=== PATIENT | female | born 2000 | race Caucasian/White ===

== ENCOUNTER 2022-11-18 10:31 | Emergency (ER) | payer OTHER, SELFPAY ==
[2022-11-18 10:41] VITALS: BP 119/76; PULSE 85; TEMP 36.5; O2SAT 99; BMI 20.8
--- NOTE | 2022-11-18 10:54 | CRLHL7_ITS ---
For Patients: As a result of the Century Cures Act, medical imaging exams and procedure reports are released immediately into your electronic medical record. You may view this report before your referring provider. If you have questions, please contact your health care provider. INDICATION: Right-sided peritonsillar swelling. Comparison none available. TECHNIQUE: CT soft tissue neck with IV contrast. Isovue 370, 62 cc. FINDINGS: There is enlargement of the bilateral tonsillar pillars right slightly greater than left with heterogeneous attenuation and enhancement. No evidence of an organized fluid collection to suggest peritonsillar abscess. No inflammatory change in the parapharyngeal fat pads. Normal thickness of the epiglottis. Normal glottis with symmetric vocal cords. Enlarged bilateral level 2 lymph nodes which are likely reactive. Scattered normal size cervical lymph nodes at the remaining levels. No supraclavicular or superior mediastinal adenopathy. Normal bilateral parotid and submandibular glands. Normal thyroid gland. Nasopharynx and oropharynx are clear. No inflammation within the parapharyngeal fat pads are retropharyngeal space. Airway is patent. Lung apices are clear. Normal alignment of cervical spine. No prevertebral soft tissue swelling. Visualized mastoid air cells are clear. Mucosal thickening and fluid within the bilateral maxillary sinuses. IMPRESSION: 1. Enlargement of the bilateral tonsillar pillars, right slightly greater than left. No organized fluid collection to suggest drainable peritonsillar abscess. 2. No inflammatory change in the parapharyngeal fat pads or retropharyngeal space. 3. Enlarged bilateral level 2 lymph nodes which are likely reactive. No adenopathy elsewhere. 4. Airway is patent. 5. Mild sinus disease Please note that all CT scans at this facility use dose modulation, iterative reconstruction, and/or weight-based dosing when appropriate to reduce radiation dose to as low as reasonably achievable. Dictated by Wally Sanchez MD @ 11/18/2022 11:38:58 AM (Electronically Signed)
--- NOTE | 2022-11-18 10:59 | ED_ITS ---
HPI - Neck Pain/Injury General Date Seen: 11/18/22 Chief Complaint: Sore Throat Stated Complaint: sore throat, + mono 2weeks ago Time Seen by Provider: 11/18/22 10:35 Source: patient Mode of arrival: ambulatory Limitations: no limitations History of Present Illness HPI Narrative: Patient is a 22-year-old female who presents here with the throat soreness, it is more pronounced on the right than the left, it has been for the last 3-4 days, it has been progressively worsened she says she notices it every time she swallows, or is just sitting there. She tried some Tylenol and some ibuprofen but really has not made a huge difference. She is just recovering from mononucleosis which was diagnosed in she went through a stretch of prednisone for this. This was 14 days ago. She took the prednisone for 5 days. She has not noted any problems with fevers chills, glandular swelling, abdominal pain, shortness of breath, chest pain, headaches, rashes, or any other thing out of the ordinary. 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 On meds for anxiety/depression and acne Related Data Home Medications Medication Instructions Recorded Confirmed fluoxetine .ROUTE 11/18/22 spironolactone .ROUTE 11/18/22 Allergies Allergy/AdvReac Type Severity Reaction Status Date / Time No Known Drug Allergies Allergy Verified 11/18/22 11:26 Review of Systems Status of ROS: Reports: 10 or more systems reviewed and unremarkable except as noted in History and below PFSH PFSH Social History Smoking Status: Never smoker How often do you have a drink containing alcohol: monthly or less How often do you have six or more drinks on one occasion: Never AUDIT-C Alcohol total score: 1 Non-prescribed substance use: denies use Exam Narrative: Exam Narrative: Patient is seen in room 4, she is speaking to me normally she is in no apparent distress, her neck supple, full range of motion of flexion extension lateral flexion is noted, mouth opening is normal with absence of trismus, she does have some right-sided tonsillar swelling, which is more pronounced than left it still approximately 2 cm from uvula, but is clearly more on the right than the left. Mild redness is noted, no other or oropharyngeal swelling is noted, TMs are normal bilaterally, chest is clear bilaterally no wheezing crackles noted, heart sounds no clicks murmurs or gallops, abdomen is soft there is no guarding, no tenderness to palpation no organomegaly. Skin reveals no rashes, do not see any supraclavicular lymphadenopathy, but she has a little bit of lymphadenopathy on the right anterior cervical region. I described as 1+ Const: Vital Signs, click to edit/add: Vital Signs - 24 hr 11/18/22 10:41 11/18/22 11:05 11/18/22 12:29 Temperature 97.7 F Pulse Rate [Pulse Oximeter] 85 69 Blood Pressure [Ri ght Upper Arm] 119/76 107/65 108/63 Pulse Oximetry 99 100 Oxygen Delivery Me thod Room Air Room Air Documenting provider has reviewed patient's vital signs: yes Course Course Hospital Course: Discussed with the patient, her CT scan did not show any drainable abscess, there is some lot enlargement of the tonsils, I think a reasonable course here would be to start her on some prednisone over longer. Timing give her some Zithromax, there is some bacterial causes that could cause this but I would try to avoid use of penicillin as it is a classic mono penicillin rash that can occur. Was comfortable this we went over signs symptoms of worsening she will return if these occur, Vital Signs Vital signs: Initial Vital Signs Temperature 97.7 F 11/18/22 10:41 Temperature Source Temporal Artery Scan 11/18/22 10:41 Pulse Rate 85 11/18/22 10:41 Blood Pressure 119/76 11/18/22 10:41 Blood Pressure Mean 90 11/18/22 10:41 Blood Pressure Position Sitting 11/18/22 10:41 Pulse Oximetry 99 11/18/22 10:41 Oxygen Delivery Method Room Air 11/18/22 10:41 Vital Signs Temperature 97.7 F 11/18/22 10:41 Pulse Rate 85 11/18/22 10:41 Blood Pressure 119/76 11/18/22 10:41 Pulse Oximetry 99 11/18/22 10:41 Oxygen Delivery Method Room Air 11/18/22 10:41 Temperature 97.7 F 11/18/22 10:41 Pulse Rate 69 11/18/22 12:29 Blood Pressure 108/63 11/18/22 12:29 Pulse Oximetry 100 11/18/22 12:29 Oxygen Delivery Method Room Air 11/18/22 12:29 MDM - Neck Pain/Injury MDM Narrative Medical decision making narrative: During this evaluation I considered multiple diagnosis including strep throat, mononucleosis, peritonsillar abscess, retropharyngeal abscess, epiglottitis, Yair's angina, lymphadenitis, tooth abscess, angioedema, and other possibilities. I explained to her that we will go ahead and do a IV, blood tests and CT scan to rule out peritonsillar abscess which I think is no most likely. Medical Records Attestation: I reviewed the patient's medical records. Lab Data Attestation: I reviewed the patient's lab results. Labs: Lab Results 11/18/22 11/18/22 Range/Units 10:40 11:37 WBC 10.20 (4.50-11.00) K/uL RBC 4.32 (4.00-5.20) m/uL Hgb 12.0 (12.0-16.0) gm/dL Hct 36.5 (33.0-51.0) % MCV 85 (80-100) fL MCH 28 (26-34) pg MCHC 33 (32-36) gm/dL RDW Coeff of Valeria 14.3 (11.5-15.5) % Plt Count 260 (140-440) K/uL Neut % (Auto) 65.4 (42.0-72.0) % Lymph % (Auto) 26.7 (20-44) % Seward % (Auto) 4.6 (0.0-11.0) % Eos % (Auto) 2.8 (0.0-7.0) % Baso % (Auto) 0.5 (0.0-3.0) % Neut # (Auto) 6.67 (1.7-7.0) K/uL Lymph # (Auto) 2.72 (0.90-2.90) K/uL Seward # (Auto) 0.50 (0.00-0.90) K/UL Eos # (Auto) 0.29 (0.00-0.50) K/uL Baso # (Auto) 0.05 (0.00-0.30) K/uL Sodium 136 (135-149) mmol/L Potassium 4.2 (3.6-5.1) mmol/L Chloride 104 (96-114) mmol/L Carbon Dioxide 25 (20-32) mmol/L BUN 10 (5-24) mg/dL Creatinine 0.7 (0.5-1.5) mg/dL Estimated Creat Clear 112.84 Estimated GFR 125 ml/min Glucose 83 (60-115) mg/dL Calcium 8.9 (8.4-10.6) mg/dL Total Bilirubin 0.4 (0.1-1.5) mg/dL Direct Bilirubin 0.2 (0.0-0.5) mg/dL AST 27 (12-35) U/L ALT 23 (4-35) U/L Alkaline Phosphatase 103 (40-150) U/L C-Reactive Protein 1.7 H (0.5-1.0) mg/dL Total Protein 7.1 (6.0-8.3) g/dL Albumin 4.1 (3.3-5.0) g/dL SARS-CoV-2 (PCR) Negative SARS-CoV-2 (Negative) Influenza Type A (PCR) Negative PCR FLU A (Negative) Influenza Type B (PCR) Negative PCR FLU B (Negative) RSV (PCR) Negative PCR RSV (Negative) Group A Strep DNA NOT DETECTED (Not Detectd) Imaging Data ct neck: Attestation: I have reviewed the pertinent imaging results. My impression: no evidence of signficant abcess Radiologist's impression: atient: ALISHA MURPHY Facility:?[facility] Patient ID:?[id number] Site Patient ID:?[id number]. Site :?[id number] Study:?CT ST Neck w/ 62cc [id number] 11:30:20 AM Ordering Physician:?Rodney Pemberton Final Report: INDICATION: Right-sided peritonsillar swelling. Comparison none available. TECHNIQUE: CT soft tissue neck with IV contrast. Isovue 370, 62 cc. FINDINGS: There is enlargement of the bilateral tonsillar pillars right slightly greater than left with heterogeneous attenuation and enhancement. No evidence of an organized fluid collection to suggest peritonsillar abscess. No inflammatory change in the parapharyngeal fat pads. Normal thickness of the epiglottis. Normal glottis with symmetric vocal cords. Enlarged bilateral level 2 lymph nodes which are likely reactive. Scattered normal size cervical lymph nodes at the remaining levels. No supraclavicular or superior mediastinal adenopathy. Normal bilateral parotid and submandibular glands. Normal thyroid gland. Nasopharynx and oropharynx are clear. No inflammation within the parapharyngeal fat pads are retropharyngeal space. Airway is patent. Lung apices are clear. Normal alignment of cervical spine. No prevertebral soft tissue swelling. Visualized mastoid air cells are clear. Mucosal thickening and fluid within the bilateral maxillary sinuses. IMPRESSION: 1. Enlargement of the bilateral tonsillar pillars, right slightly greater than left. No organized fluid collection to suggest drainable peritonsillar abscess. 2. No inflammatory change in the parapharyngeal fat pads or retropharyngeal space. 3. Enlarged bilateral level 2 lymph nodes which are likely reactive. No adenopathy elsewhere. 4. Airway is patent. 5. Mild sinus disease Please note that all CT scans at this facility use dose modulation, iterative reconstruction, and/or weight-based dosing when appropriate to reduce radiation dose to as low as reasonably achievable. Dictated by Wally Sanchez MD @ 11/18/2022 11:38:58 AM (Electronic Signature) Discharge Plan Discharge Clinical Impression: Acute tonsillitis Patient Disposition: Home, Self-Care Condition: Stable Instructions: Tonsillitis (ED) Additional Instructions: No evidence of an abscess on the CT, I think this is more likely either repeated mono or a new type of virus causing this. There are also sometimes a backed here that can cause this, your strep however was negative, I believe a good compromise here would be to go on a more tapering dose of the prednisone along with Zithromax, see how this goes, you may use some Tylenol with this and or ibuprofen, rest, and follow-up with primary care in the next 3-5 days. Return here if unable to swallow, high fevers, or changes in her symptoms. Activity Level: No Restrictions Prescriptions: No Action fluoxetine [Prozac] .ROUTE spironolactone .ROUTE Follow Up/Referrals: Provider,Not a Local [Primary Care Provider] - Stand Alone Forms: [employer] Info Instructions
[2022-11-18 11:05] VITALS: BP 107/65
[2022-11-18] MEDS: KETOROLAC 30 MG/ML inj IVP (11:15)
[2022-11-18 11:27] LABS: PCR FLU A Negative PCR FLU A (Negative); PCR FLU B Negative PCR FLU B (Negative); PCR RSV Negative PCR RSV (Negative)
[2022-11-18] MEDS: 0.9 % SODIUM CHLORIDE 1000 ml 1,000 ML IV (11:30)
[2022-11-18 11:43] LABS: Strep A DNA Probe* NOT DETECTED (Not Detectd)
[2022-11-18 11:44] LABS: SARS PCR* Negative SARS-CoV-2 (Negative)
[2022-11-18 11:45] LABS: Basophils Absolute Auto 0.05 K/uL (0.00-0.30); Basophils Percent Auto 0.5 % (0.0-3.0); Eosinophils Absolute Auto 0.29 K/uL (0.00-0.50); Eosinophils Percent Auto 2.8 % (0.0-7.0); Hematocrit 36.5 % (33.0-51.0); Lymphocytes Absolute Auto 2.72 K/uL (0.90-2.90); Lymphocytes Percent Auto 26.7 % (20-44); Mean Corpuscular HGB Conc 33 gm/dL (32-36); Mean Corpuscular Hemoglobin 28 pg (26-34); Mean Corpuscular Volume 85 fL (80-100); Monocytes Percent Auto 4.6 % (0.0-11.0); Neutrophils Absolute Auto 6.67 K/uL (1.7-7.0); Neutrophils Percent Auto 65.4 % (42.0-72.0); Platelet Count* 260 K/uL (140-440); RDW Coefficient of Variation % 14.3 % (11.5-15.5); Red Blood Count 4.32 m/uL (4.00-5.20)
[2022-11-18 11:50] LABS: Slide Review Reflex No
[2022-11-18 11:55] LABS: Albumin* 4.1 g/dL (3.3-5.0); Chloride* 104 mmol/L (96-114); Sodium* 136 mmol/L (135-149)
[2022-11-18 11:56] LABS: Potassium* 4.2 mmol/L (3.6-5.1)
[2022-11-18 11:57] LABS: Creatinine* 0.7 mg/dL (0.5-1.5); Est. Creatinine Clearance* 112.84; Estimated Glomerular Filt Rate 125 ml/min
[2022-11-18 11:58] LABS: Alanine Aminotransferase* 23 U/L (4-35); Alkaline Phosphatase* 103 U/L (40-150); Aspartate Amino Transferase* 27 U/L (12-35); Bilirubin Direct* 0.2 mg/dL (0.0-0.5); Bilirubin Total* 0.4 mg/dL (0.1-1.5); Blood Urea Nitrogen* 10 mg/dL (5-24); Carbon Dioxide* 25 mmol/L (20-32); Total Protein* 7.1 g/dL (6.0-8.3)
[2022-11-18 11:59] LABS: Calcium* 8.9 mg/dL (8.4-10.6); Glucose* 83 mg/dL (60-115)
[2022-11-18 12:01] LABS: C Reactive Protein* 1.7 mg/dL (0.5-1.0)
[2022-11-18 12:29] VITALS: BP 108/63; PULSE 69; O2SAT 100
== END 2022-11-18 12:48 | disposition home or self-care (01) ==
PROVIDERS: Emergency Provider Family Medicine
DX: J03.90 Acute tonsillitis, unspecified (principal)
CPT/HCPCS: 36415; 70491; 80048; 80076; 85025; 86140; 87631; 87651; 96374; 99283; 99284; J1885; J7030; Q9967

== ENCOUNTER 2022-11-21 23:35 | Emergency (ER) | payer OTHER, SELFPAY ==
[2022-11-21 23:41] VITALS: BP 123/77; PULSE 60; RESP 18; TEMP 36.4; O2SAT 100; BMI 20.8
--- NOTE | 2022-11-22 00:29 | ED_ITS ---
HPI - General Adult General Chief complaint: Ear/Nose/Throat Problem Stated complaint: sinus pain, difficulty swallowing Time Seen by Provider: 11/21/22 23:51 Source: patient Mode of arrival: ambulatory Limitations: no limitations History of Present Illness HPI narrative: 22-year-old female presents to the ED for the 2nd time in a few days. Notes from previous visit reviewed including CT, labs. Patient states that she was initially beginning to have mono symptoms about 4 weeks ago, initially sore throat fatigue and headache. She was diagnosed around October 28 with mono which is about 3 weeks ago. In the emergency department 3 days ago, she was having increased sore throat after initial improvement for a few days. She had initially been on a prednisone burst and this had been completed. Extensive w orkup was provided and thankfully normal. She presents today not because her pain is worse but because it is different. She admits that she is not using maximum doses of Tylenol and ibuprofen but rather taking 1-2 times per day with insufficient results. She was unable to sleep tonight and was starting to notice pain in her right ear. Previous provider has started the patient on additional prednisone and a course of azithromycin. She comes back because these are not seeming to make any benefit in her pain. She is still able to swallow, she has no breathing difficulty. She is taking in plenty of fluids. There is no vomiting, no abdominal pain. She does still have some fatigue. No syncopal symptoms, no fever. Past medical history notable for anxiety disorder. Home meds are Prozac, spironolactone for acne. Specific questioning, she is also using melatonin and Tylenol p.m. sporadically to help her sleep. She is a nonsmoker, no new illness contacts. ROS notable for the generalized, HEENT symptoms as above, otherwise denies times 12 systems. Related Data Home Medications Medication Instructions Recorded Confirmed fluoxetine .ROUTE 11/18/22 spironolactone .ROUTE 11/18/22 fluoxetine 20 mg capsule 20 mg PO DAILY 11/21/22 11/21/22 fluoxetine 40 mg capsule 40 mg PO DAILY 11/21/22 11/21/22 prednisone 20 mg tablet 20 mg PO DAILY 11/21/22 11/21/22 propranolol 10 mg tablet 10 mg PO BID 11/21/22 11/21/22 spironolactone 100 mg tablet 100 mg PO DAILY 11/21/22 11/21/22 lorazepam 1 mg tablet 1 mg PO DAILY PRN 11/22/22 11/22/22 Allergies Allergy/AdvReac Type Severity Reaction Status Date / Time No Known Drug Allergies Allergy Verified 11/18/22 11:26 [facility] Social History Smoking Status: Never smoker How often do you have a drink containing alcohol: monthly or less How many standard drinks containing alcohol do you have on a typical day: 1 or 2 How often do you have six or more drinks on one occasion: Never AUDIT-C Alcohol total score: 1 Non-prescribed substance use: denies use Exam Const: Vital Signs, click to edit/add: Vital Signs - 24 hr 11/21/22 23:41 Temperature 97.5 F L Pulse Rate [Pulse Oximeter] 60 Respiratory Rate 18 Blood Pressure [Le ft Upper Arm] 123/77 Pulse Oximetry 100 Oxygen Delivery Me thod Room Air Documenting provider has reviewed patient's vital signs: yes Common n ormals: no apparent distress General appearance: cooperative, comfortable and well kempt Other: Appears well nourished, well hydrated. HENMT: Common normals: normocephalic, TM's normal bilaterally and external nose normal Head and scalp: normocephalic Face and sinus: normal facial exam Nose: external nose normal; no nasal discharge Tympanic membrane: TM's normal bilaterally Mouth: oral and palatal mucosa normal and tongue normal Other: Normal dentition. Right tonsil is 2+, left appears normal. There is no concretions present, No exudate. No uvula swelling, no airway obstruction. Eye: Common normals: conjunctivae normal General eye: normal appearance of both eyes Conjunctiva: conjunctiva(e) normal Neck & C-Spine: Other: Mild submandibular and anterior cervical lymphadenopathy Resp: Common normals: normal respiratory effort, no use of accessory muscles and clear to auscultation bilaterally Effort & inspection: able to speak in complete sentences Auscultation: clear to auscultation bilaterally Cardio: Common normals: regular rate, regular rhythm, S1 normal heart sound, S2 normal heart sound and no murmurs Rate: regular rate Rhythm: regular rhythm Heart sounds: S1 normal and S2 normal GI: Common normals: Normal to inspection, nondistended, normoactive bowel sounds present, soft to palpation, non-tender, no hepatosplenomegaly and no masses Palpation: soft and no hepatosplenomegaly Extremity: Common normals: normal to inspection and normal capillary refill Neuro: Common normals: moves all extremities and no focal motor deficits Psych: Appearance: well kempt Attitude: engaged Activity/motor behavior: appropriate eye contact Mood and affect: euthymic mood Insight: insight good Judgement: judgment good Skin: Common normals: no rashes or lesions noted General skin exam: no rashes or lesions noted Course Vital Signs Vital signs: Initial Vital Signs Temperature 97.5 F L 11/21/22 23:41 Temperature Source Temporal Artery Scan 11/21/22 23:41 Pulse Rate 60 11/21/22 23:41 Respiratory Rate 18 11/21/22 23:41 Blood Pressure 123/77 11/21/22 23:41 Blood Pressure Mean 92 11/21/22 23:41 Pulse Oximetry 100 11/21/22 23:41 Oxygen Delivery Method Room Air 11/21/22 23:41 Vital Signs Temperature 97.5 F L 11/21/22 23:41 Pulse Rate 60 11/21/22 23:41 Respiratory Rate 18 11/21/22 23:41 Blood Pressure 123/77 11/21/22 23:41 Pulse Oximetry 100 11/21/22 23:41 Oxygen Delivery Method Room Air 11/21/22 23:41 Temperature 97.5 F L 11/21/22 23:41 Pulse Rate 60 11/21/22 23:41 Respiratory Rate 18 11/21/22 23:41 Blood Pressure 123/77 11/21/22 23:41 Pulse Oximetry 100 11/21/22 23:41 Oxygen Delivery Method Room Air 11/21/22 23:41 Medical Decision Making MDM Narrative Medical decision making narrative: no evidence of peritonsillar abscess on recent CT, no worsening of symptoms or exam that would warrant repeating this. Risk of radiation outweighs benefit in this clinical context. No signs of any soft tissue swelling down the neck, respiratory difficulty, dehydration or other complication. I am not surprised that her symptoms were not made better by the prednisone or azithromycin at this stage of illness. Unfortunately, she should expect another couple of weeks of symptoms. True alarm symptoms reviewed with patient that would be good reasons come to the emergency department. Stressed the importance of Tylenol and ibuprofen at appropriate doses and intervals to help with pain control. Continue pushing fluids. Complete course of azithromycin, may stop prednisone any time she feels ready. Stressed the importance of sleep aids to prevent further illness frustration. Tylenol p.m. and melatonin as first-line therapy. Small supply of Flexeril given if these are not sufficient. Patient should follow-up with her primary care provider if symptoms are not improving in 3 wee ks for additional workup and testing. Any severe throat symptoms would warrant ED presentation and the clear indications of this were reviewed. All questions answered. Discharge Plan Discharge Clinical Impression: Mononucleosis syndrome Patient Disposition: Home, Self-Care Condition: Stable Instructions: Mononucleosis (ED) Additional Instructions: As we discussed, there are no signs of any significant complications today. I have reviewed the blood tests and CT scan that you had just a few days ago. As we discussed, repeating these gives you additional radiation which is not healthy for you. The exam does not appear worsening compared to the notes from my partner. Your pain and symptoms are very typical in the course of this illness. I had hoped that you would get more relief from the prednisone and antibiotic but I would not expect that doing more of these or extending the c ourse is going to be more helpful for you. I want you to be sure that your being aggressive with the ibuprofen and Tylenol. Take 600 mg of ibuprofen a minimum of 3 times daily and I would like for you to aim for every 6 hours. If the pain is still very bothersome, use Tylenol 1000 mg every 6 hours in addition to the ibuprofen. Both of these medicines will only last for a few hours, therefore you need to continue alternating them. As we discussed, sometimes the pain can be more bothersome at night because of your inability to sleep. Make sure that you are taking advantage of Tylenol p.m. 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 I will also give you a low-dose of a medication called Flexeril, a muscle relaxant that you can use at night as needed. If it makes you very sleepy, consider only taking a half of a pill. Unfortunately, expect your symptoms to last another 2 weeks. They may fluctuate somewhat. Remember the red flag symptoms that we discussed. Activity Level: Activity as Tolerated Discharge Diet: Regular Prescriptions: No Action fluoxetine 40 mg capsule 40 mg PO DAILY prednisone 20 mg tablet 20 mg PO DAILY spironolactone 100 mg tablet 100 mg PO DAILY propranolol 10 mg tablet 10 mg PO BID fluoxetine 20 mg capsule 20 mg PO DAILY lorazepam 1 mg tablet 1 mg PO DAILY PRN fluoxetine [Prozac] .ROUTE spironolactone .ROUTE Follow Up/Referrals: Provider,Not a Local [Primary Care Provider] - Stand Alone Forms: [employer] Info Instructions
== END 2022-11-22 00:33 | disposition home or self-care (01) ==
LOC: ED 11-22 00:27
PROVIDERS: Emergency Provider Family Medicine
DX: B27.80 Other infectious mononucleosis without complication (principal)
CPT/HCPCS: 99282; 99283